=== PATIENT | female | born 1990 | race African-American/Black ===

== ENCOUNTER 2017-02-06 18:00 | Emergency (ER) | payer BC ==
[~2017-02-06] VITALS: Ht 152.4 cm; Wt 92.5 kg
[2017-02-06 18:10] VITALS: BP 124/73
[2017-02-06] MEDS ORDERED: ACYC400T PO (18:27)
[2017-02-06] MEDS ORDERED: AMOX1TAB61 PO (18:27)
--- NOTE | 2017-02-06 18:27 | PHYS DOC ---
Past Medical History Past Medical History: No Pertinent History Past Surgical History: No Surgical History Alcohol Use: Occasionally Drug Use: None Adult General Chief Complaint Chief Complaint: COUGH HPI HPI Patient is a 26 year old female presents to the emergency department stating that she has having nasal congestion with maxillary sinus tenderness. She states that she has had fevers on and off with sweats and chills. Patient also states that she has cold sores underneath her nose bilaterally. She denies any drainage or discharge coming from the sites. Patient states she's been taken NyQuil [id number]. Parent has provided her with some type of cream to place on her cold sores. Patient states she just needs to get better and she wants the cold sores gone. Review of Systems Review of Systems Constitutional: Denies fever or chills [] Eyes: Denies change in visual acuity, redness, or eye pain [] HENT: nasal congestion and sore throat [] Respiratory: Denies cough or shortness of breath [] Cardiovascular: No additional information not addressed in HPI [] GI: Denies abdominal pain, nausea, vomiting, bloody stools or diarrhea [] : Denies dysuria or hematuria [] Musculoskeletal: Denies back pain or joint pain [] Integument: rash denies skin lesions [] Neurologic: Denies headache, focal weakness or sensory changes [] Endocrine: Denies polyuria or polydipsia [] Allergies Allergies Allergies Coded Allergies Type Severity Reaction Last Updated Verified No Known Drug Allergies 09/15/14 No Physical Exam Physical Exam Constitutional: Well developed, well nourished, no acute distress, non-toxic appearance. [] HENT: Normocephalic, atraumatic, bilateral external ears normal, oropharynx moist, no oral exudates, nose normal. Bilateral tympanic membranes appear to be normal. Throat with postnasal drip noted. No erythematous no exudate noted. No anterior cervical adenopathy noted. Eyes: PERRLA, EOMI, conjunctiva normal, no discharge. [] Neck: Normal range of motion, no tenderness, supple, no stridor. [] Cardiovascular:Heart rate regular rhythm, no murmur [] Lungs & Thorax: Bilateral breath sounds clear to auscultation [] Skin: Warm, dry, no erythema, patient with a rash noted underneath her nose that appears to be pustular type. No drainage or discharge noted from the site. Extremities: No tenderness, no cyanosis, no clubbing, ROM intact, no edema. [] Neurologic: Alert and oriented X 3, normal motor function, normal sensory function, no focal deficits noted. [] Psychologic: Affect normal, judgement normal, mood normal. [] Current Patient Data Vital Signs Vital Signs Date Time Temp Pulse Resp B/P (MAP) Pulse Ox O2 Delivery O2 Flow Rate FiO2 02/06/17 18:10 98.0 71 16 99 Room Air 98.0 EKG EKG [] Radiology/Procedures Radiology/Procedures [] Course & Med Decision Making Course & Med Decision Making Pertinent Labs and Imaging studies reviewed. (See chart for details) Patient will be discharged home with recommendations to use Sudafed over-the- counter. Also recommended Mucinex DM for the cough and congestion. Patient will also be provided with a prescription for Augmentin as the signs and symptoms of been going on since Friday. Patient was be encouraged to use Abreva over-the- counter for the rash underneath the naris. She'll also be provided with acyclovir. Patient will be discharged home in stable condition with recommendations to follow-up the primary care physician next 3-5 days. Encourage plenty of fluids. Signs and symptoms to return back to emergency parents been provided. All questions and concerns been answered patient's bedside. [] Dragon Disclaimer Dragon Disclaimer This electronic medical record was generated, in whole or in part, using a voice recognition dictation system. Departure Departure Impression: Primary Impression: Sinusitis Additional Impression: Cold sore Disposition: 01 HOME, SELF-CARE Condition: STABLE Referrals: NO PCP (PCP) Patient Instructions: Sinusitis, [id number] Additional Instructions: Activity as tolerated. Medications as prescribed. Sudafed and Mucinex DM may be taken as instructed by cold mill inspector over-the- counter. You may also use Abreva [id number] to help with the sold sores. Drink plenty of fluids. Tylenol or ibuprofen for pain and discomfort. Follow-up with the primary care physician in the next 5-7 days. Return back to emergency prior signs symptoms that become worse. Scripts Acyclovir (ACYCLOVIR) 400 Mg Tablet 400 MG PO 5XDAY for 5 Days, #25 TAB Prov: RACHELLE HANDY DEPLOYMENT TECHNICIAN 02/06/17 Amoxicillin/Potassium Clav (AUGMENTIN 875-125 TABLET) 1 Each Tablet 1 TAB PO BID, #20 TAB Prov: RACHELLE HANDY APRN 02/06/17 Problem Qualifiers Primary Impression: Sinusitis Sinusitis location: maxillary Chronicity: unspecified Qualified Codes: J32.0 - Chronic maxillary sinusitis RACHELLE HANDY APRN Feb 06, 2017 18:27
== END 2017-02-06 18:36 | disposition home or self-care (01) ==
LOC: ER 18:00
DX: J32.0 Chronic maxillary sinusitis (principal); B00.1 Herpesviral vesicular dermatitis
CPT/HCPCS: 99283

== ENCOUNTER 2017-08-11 15:24 | Emergency (ER) | payer BC | END 2017-08-11 15:54 | disposition home or self-care (01) | LOC: ER 15:24 | DX: R07.89 Other chest pain (principal); M54.6 Pain in thoracic spine | CPT/HCPCS: 99283 ==

== ENCOUNTER 2017-12-31 12:35 | Emergency (ER) | payer SELFPAY ==
[~2017-12-31] VITALS: Ht 152.4 cm; Wt 89.8 kg
[~2017-12-31 12:35] MED LIST: ACYC400T PO; AMOX1TAB61 PO; CYCL10TA2 PO; IBUP-1007 PO
[2017-12-31 12:37] VITALS: BP 125/68
--- NOTE | 2017-12-31 13:19 | PHYS DOC ---
Past Medical History Past Medical History: No Pertinent History Past Surgical History: No Surgical History Alcohol Use: Occasionally Drug Use: Marijuana Adult General Chief Complaint Chief Complaint: BACK PAIN OR INJURY HPI HPI 27 y/o female presents to ER for c/o mid low back which she has had intermittent for past 1 1/2 yrs. patient reports pain increased over the past couple of days. She reports she took a Flexeril last night and did have some relief in symptoms. Patient denies any medications today for pain. Patient denies any numbness or tingling, saddle anesthesia, incontinence of bowel or bladder, or change in bowel patterns. Patient denies fever or chills. She denies any urinary symptoms. Patient denies swelling in bilateral lower extremities. Patient denies difficulty ambulating. She denies any recent falls or injury. Patient denies any heavy lifting. LMP 2 weeks ago. Review of Systems Review of Systems Constitutional: Denies fever or chills [] Eyes: Denies change in visual acuity, redness, or eye pain [] HENT: Denies nasal congestion or sore throat [] Respiratory: Denies cough or shortness of breath [] Cardiovascular: Denies chest pain or palpitations GI: Denies abdominal pain, nausea, vomiting, bloody stools or diarrhea. Denies change in bowel pattern. : Denies dysuria or hematuria. Denies incontinence of bowel or bladder. Denies flank pain Musculoskeletal: Denies joint pain. Reports mid lower back pain-denies swelling in extremities. Denies inability to ambulate Integument: Denies rash or skin lesions [] Neurologic: Denies headache, focal weakness or sensory changes. Denies numbness or tingling in lower extremities All other systems were reviewed and found to be within normal limits, except as documented in this note. Current Medications Current Medications Current Medications Medications (Trade) Dose Ordered Sig/Lolly Start Time Stop Time Status Last Admin Dose Admin Prednisone (Prednisone) 40 mg 1X ONCE 12/31/17 13:30 12/31/17 13:31 DC Allergies Allergies Allergies Coded Allergies Type Severity Reaction Last Updated Verified No Known Drug Allergies 09/15/14 No Physical Exam Physical Exam Constitutional: Well developed, well nourished, no acute distress, non-toxic appearance. [] HENT: Normocephalic, atraumatic,oropharynx moist, nose normal. [] Eyes: PERRLA, conjunctiva normal, no discharge. [] Neck: Normal range of motion, no tenderness, supple Cardiovascular:Heart rate regular rhythm, no murmur [] Lungs & Thorax: Bilateral breath sounds clear to auscultation. Resp. equal/ nonlabored Abdomen: soft, no tenderness Skin: Warm, dry, no erythema/swelling, no rash. [] Back: Tender to palp. mid lower back- no palp deformity/visible injury , no CVA tenderness. [] Extremities: No tenderness, no cyanosis, no clubbing, ROM intact, no edema. [] Neurologic: Alert and oriented X 3, normal motor function, normal sensory function, no focal deficits noted. [] Psychologic: Affect normal, judgement normal, mood normal. [] Current Patient Data Vital Signs Vital Signs Date Time Temp Pulse Resp B/P (MAP) Pulse Ox O2 Delivery O2 Flow Rate FiO2 12/31/17 12:37 98.1 105 12 125/68 (87) 97 Room Air 98.1 EKG EKG [] Radiology/Procedures Radiology/Procedures [] Course & Med Decision Making Course & Med Decision Making In-depth conversation had with patient regarding [id number] medication she could use for pain. Discussion had regarding chronic pain and need to establish primary care physician for further follow-up and pain management. With no recent falls or new injury no imaging done during this ER visit and patient is agreeable with this plan. Patient stated her boyfriend had been treated with steroids for musculoskeletal pain and she would like to try that treatment along with the muscle relaxer. Dose of prednisone will be provided in the ER and small quantity of Flexeril will be prescribed with discharge paperwork. We'll provide patient with clinic and physician information to assist with finding primary care physician. Patient has been in no visible distress with steady gait in the ER. Discharge instructions were discussed and education provided on signs and symptoms to return to ER for. Patient is agreeable with discharge plan as discussed. Dragon Disclaimer Dragon Disclaimer This electronic medical record was generated, in whole or in part, using a voice recognition dictation system. Departure Departure Impression: Primary Impression: Chronic lower back pain Disposition: HOME, SELF-CARE Condition: STABLE Referrals: NO PCP (PCP) Patient Instructions: Chronic Back Pain Additional Instructions: With your pain being chronic it is important to establish a primary care physician for further care and pain management. You are being provided with clinic and physician information to assist with finding a doctor for further care. You can use over the counter Ibuprofen, tylenol, sports cream, and heat/ice application for additional pain control options. Scripts Prednisone (PREDNISONE) 20 Mg Tablet 40 MG PO DAILY, #8 TAB start this medication 01/01/18 as initial dose was given while in Emergency Department Prov: MADHU MERA APRN 12/31/17 Cyclobenzaprine Hcl (CYCLOBENZAPRINE HCL) 10 Mg Tablet 10 MG PO BID, #10 TAB No drinking alcohol or driving while taking this medication Prov: MADHU MERA APRN 12/31/17 MADHU MERA APRN Dec 31, 2017 13:19
[2017-12-31] MEDS ORDERED: CYCL10TA2 PO (13:27)
[2017-12-31] MEDS ORDERED: PRED20TA PO (13:27)
[2017-12-31] MEDS ORDERED: predniSONE 20 MG TABLET PO ONE (13:30)
== END 2017-12-31 13:44 | disposition home or self-care (01) ==
LOC: ER 12:35
DX: G89.29 Other chronic pain (principal); M54.5 Low back pain; M54.6 Pain in thoracic spine
CPT/HCPCS: 99283; J7512

== ENCOUNTER 2018-03-01 23:56 | Emergency (ER) | payer SELFPAY ==
[~2018-03-01] VITALS: Ht 154.9 cm; Wt 87.5 kg
[~2018-03-01 23:56] MED LIST changes: +PRED20TA PO
[2018-03-02 00:17] VITALS: BP 133/86
[2018-03-02] MEDS ORDERED: NAPROXEN 500 MG TABLET PO ONE (00:45)
[2018-03-02] MEDS ORDERED: OFLO5DRO7 LEFT EAR (00:47)
[2018-03-02] MEDS ORDERED: AMOX875T PO (00:47)
--- NOTE | 2018-03-02 00:48 | PHYS DOC ---
Past Medical History Past Medical History: No Pertinent History Past Surgical History: No Surgical History Alcohol Use: None Drug Use: None Adult General Chief Complaint Chief Complaint: EARACHE/EAR PAIN HPI HPI Patient is a 27 year old AA female who presents to the ER with complaints of left ear pain since last night. She denies any drainage, bleeding, or injury to the ear. She denies any fever, runny nose, sore throat, or cough. States that she has not tried taking anything for relief of her pain. Currently she reports her pain as a 10 out of 10 on the pain scale. Review of Systems Review of Systems Constitutional: Denies fever or chills [] Eyes: Denies change in visual acuity, redness, or eye pain [] HENT: Denies nasal congestion or sore throat; reports left ear pain see history of present illness [] Respiratory: Denies cough or shortness of breath [] Cardiovascular: No additional information not addressed in HPI [] Integument: Denies rash or skin lesions [] Neurologic: Denies headache, focal weakness or sensory changes [] All other systems were reviewed and found to be within normal limits, except as documented in this note. Allergies Allergies Allergies Coded Allergies Type Severity Reaction Last Updated Verified No Known Drug Allergies 09/15/14 No Physical Exam Physical Exam Constitutional: Well developed, well nourished, no acute distress, non-toxic appearance. [] HENT: Normocephalic, atraumatic, bilateral external ears normal, right TM normal , difficulty visualizing left TM due to diffuse swelling and erythema of left inner ear canal consistent with otitis externa, oropharynx moist, no oral exudates, nose normal. [] Eyes: PERRLA, conjunctiva normal, no discharge. [] Neck: Normal range of motion, supple, no stridor; left posterior auricular lymph node tenderness. [] Cardiovascular:Heart rate regular rhythm, no murmur [] Lungs & Thorax: Bilateral breath sounds clear to auscultation [] Skin: Warm, dry, no erythema, no rash. [] Neurologic: Alert and oriented X 3, normal motor function, normal sensory function, no focal deficits noted. [] Psychologic: Affect normal, judgement normal, mood normal. [] Current Patient Data Vital Signs Vital Signs Date Time Temp Pulse Resp B/P (MAP) Pulse Ox O2 Delivery O2 Flow Rate FiO2 03/02/18 00:17 98.4 79 18 133/86 (102) 98 Room Air 98.4 EKG EKG [] Radiology/Procedures Radiology/Procedures [] Course & Med Decision Making Course & Med Decision Making Pertinent Labs and Imaging studies reviewed. (See chart for details) dx: Left otitis externa, left otitis media Patient was given a naproxen in the emergency department. Prescription written for ofloxacin eardrops, and amoxicillin. Advised patient she may take Tylenol or ibuprofen as needed for pain. Follow-up with her primary care doctor in 2-3 days if symptoms persist. Return to the ER symptoms worsen. Patient verbalized an understanding of home care, medications, follow-up, and return to ED instructions and was in agreement with the plan of care. [] Dragon Disclaimer Dragon Disclaimer This electronic medical record was generated, in whole or in part, using a voice recognition dictation system. Departure Departure Impression: Primary Impression: Diffuse otitis externa, left ear Additional Impression: Left acute otitis media Disposition: HOME, SELF-CARE Condition: STABLE Referrals: NO PCP (PCP) Patient Instructions: Otitis Externa, [id number] Additional Instructions: Fill prescriptions and use them as directed. You may take Tylenol or ibuprofen as needed for pain. Follow-up with your primary care doctor in 2-3 days if symptoms persist. Return to the ER symptoms worsen. Scripts Ofloxacin (OFLOXACIN) 5 Ml Drops 5 DROP LEFT EAR BID for 5 Days, #5 ML 0 Refills Prov: JAYNE AGUILLON COMMUTATOR UNDERCUTTER 03/02/18 Amoxicillin (AMOXICILLIN) 875 Mg Tablet 1 TAB PO BID, #14 TAB Prov: JAYNE AGUILLON COMMUTATOR UNDERCUTTER 03/02/18 Problem Qualifiers Primary Impression: Diffuse otitis externa, left ear Chronicity: acute Qualified Codes: H60.312 - Diffuse otitis externa, left ear JAYNE AGUILLON COMMUTATOR UNDERCUTTER Mar 02, 2018 00:48
== END 2018-03-02 01:10 | disposition home or self-care (01) ==
LOC: ER 23:56
DX: H60.312 Diffuse otitis externa, left ear (principal); H66.92 Otitis media, unspecified, left ear
CPT/HCPCS: 99283

== ENCOUNTER 2018-07-22 17:47 | Emergency (ER) | payer SELFPAY ==
[~2018-07-22] VITALS: Ht 152.4 cm; Wt 87.1 kg
[~2018-07-22 17:47] MED LIST changes: +AMOX875T PO; +OFLO5DRO7 LEFT EAR
[2018-07-22 18:04] VITALS: BP 124/69
[2018-07-22] MEDS ORDERED: DICL50TA4 PO (18:55)
--- NOTE | 2018-07-22 18:55 | PHYS DOC ---
Past Medical History Past Medical History: No Pertinent History Past Surgical History: No Surgical History Alcohol Use: Occasionally Drug Use: None, Marijuana Adult General Chief Complaint Chief Complaint: BACK PAIN - NO INJURY HPI HPI Patient is a 28 year old female with history of chronic low back pain presenting today complaining of 8 out of 10 bilateral low back pain that began yesterday, patient states the pain radiates to the hips. Patient denies any known injury. Denies any numbness or tingling to bilateral lower extremities. Denies any loss of bowel bladder function. She states her pain is worse when she sits for too long. Patient states she has muscle relaxer at home as well as steroids which she takes occasionally for her pain. She also has a PCP she follows up with who has told her to lose some weight but she states she doesn't believe she can lose weight around her hip area. Review of Systems Review of Systems Constitutional: Denies fever or chills [] GI: Denies abdominal pain, nausea, vomiting, bloody stools or diarrhea [] : Denies dysuria or hematuria [] Musculoskeletal: Reports low back pain Integument: Denies rash or skin lesions [] Neurologic: Denies headache, focal weakness or sensory changes [] All other systems were reviewed and found to be within normal limits, except as documented in this note. Allergies Allergies Allergies Coded Allergies Type Severity Reaction Last Updated Verified No Known Drug Allergies 09/15/14 No Physical Exam Physical Exam Constitutional: Well developed, well nourished, no acute distress, non-toxic appearance. [] Abdomen: Bowel sounds normal, soft, no tenderness, no masses, no pulsatile masses. [] Skin: Warm, dry, no erythema, no rash. [] Back: overweight patient with most of the weight around the hips. Diffuse paraspinal muscle tenderness bilaterally to the lumbar no midline lumbar tenderness, no CVA tenderness. [] Extremities: No tenderness, no cyanosis, no clubbing, ROM intact, no edema. [] Neurologic: Alert and oriented X 3, normal motor function, normal sensory function, no focal deficits noted. [] Psychologic: Affect normal, judgement normal, mood normal. [] Current Patient Data Vital Signs Vital Signs Date Time Temp Pulse Resp B/P (MAP) Pulse Ox O2 Delivery O2 Flow Rate FiO2 07/22/18 18:04 98.4 76 16 124/69 (87) 99 Room Air 98.4 EKG EKG [] Radiology/Procedures Radiology/Procedures [] Course & Med Decision Making Course & Med Decision Making Pertinent Labs and Imaging studies reviewed. (See chart for details) This is a 28-year-old female patient presenting to the ED today with exacerbation of chronic low back pain. Patient was given prescription for diclofenac. She read he has a muscle relaxer as well as steroids at home which she uses occasionally. She read he has a PCP for follow-up. Encouraged to continue following up. She requested a note for work which was provided. Dragon Disclaimer Dragon Disclaimer This electronic medical record was generated, in whole or in part, using a voice recognition dictation system. Departure Departure Impression: Primary Impression: Chronic low back pain Disposition: HOME, SELF-CARE Condition: STABLE Referrals: NO PCP (PCP) follow up with your doctor next week Patient Instructions: Back Pain, Adult Additional Instructions: You were evaluated in the emergency room for low back pain, take the prescribed medications as needed for pain continue taking a muscle relaxer as well as steroids . Continue with your weight loss program. Follow-up with your doctor in 1-2 weeks. Scripts Diclofenac Sodium (DICLOFENAC SODIUM) 50 Mg Tablet.dr 1 TAB PO BID, #30 TAB 0 Refills Prov: ROBY JOY APRN 07/22/18 Problem Qualifiers Primary Impression: Chronic low back pain Back pain laterality: bilateral Sciatica presence: with sciatica Sciatica laterality: bilateral sciatica Qualified Codes: M54.42 - Lumbago with sciatica, left side; M54.41 - Lumbago with sciatica, right side; G89.29 - Other chronic pain ROBY JOY APRN Jul 22, 2018 18:55
== END 2018-07-22 19:11 | disposition home or self-care (01) ==
LOC: ER 17:47
DX: G89.29 Other chronic pain (principal); M54.42 Lumbago with sciatica, left side; M54.41 Lumbago with sciatica, right side
CPT/HCPCS: 99282; 99283

== ENCOUNTER 2019-03-11 15:05 | Emergency (ER) | payer SELFPAY ==
[~2019-03-11] VITALS: Ht 152.4 cm; Wt 87.1 kg
[~2019-03-11 15:05] MED LIST changes: +DICL50TA4 PO
[2019-03-11 15:12] VITALS: BP 136/84
--- NOTE | 2019-03-11 15:35 | PHYS DOC ---
Past Medical History Past Medical History: No Pertinent History Additional Past Medical Histor: CHRONIC BACK PAIN Past Surgical History: No Surgical History Alcohol Use: Occasionally Drug Use: None, Marijuana Adult General Chief Complaint Chief Complaint: LOWER BACK PAIN OR INJURY HPI HPI Patient is a 28 year old [female] who presents with [mid back pain. States she has a history of lower back pain, chronic, has seen PCP for this in the past. States over the past couple days she states her pain has gone up her back a little and continues to be a little sore. States she has had no change in her urination, no change in activity, states she had tried a muscle relaxer last night and it did seem to help, but seemed to help later than usual last night. States she has used biofreeze in the past and had great success with that but did not know where to get it. States she has taken medications in the past and usually has improvement but today she continues to feel a little uncomfortable. Denies change in lifting, change in activity, change in bowel or bladder, loss of bowel or bladder. States only was concerned because her pain seemed a little higher today] Review of Systems Review of Systems Constitutional: Denies fever or chills [] HENT: Denies nasal congestion or sore throat [] Respiratory: Denies cough or shortness of breath [] GI: Denies abdominal pain, nausea, vomiting, bloody stools or diarrhea [] : Denies dysuria or hematuria [] Musculoskeletal: Reports chronic back pain, denies joint pain [] Integument: Denies rash or skin lesions [] Neurologic: Denies headache, focal weakness or sensory changes [] All other systems were reviewed and found to be within normal limits, except as documented in this note. Allergies Allergies Allergies Coded Allergies Type Severity Reaction Last Updated Verified No Known Drug Allergies 09/15/14 No Physical Exam Physical Exam Constitutional: Well developed, well nourished, no acute distress, non-toxic appearance. Conversational, smiling, laughing, in no apparent distress or discomfort [] Neck: Normal range of motion, no tenderness, supple, no stridor. [] Cardiovascular:Heart rate regular rhythm, no murmur [] Abdomen: Bowel sounds normal, soft, no tenderness, no masses, no pulsatile masses. [] Skin: Warm, dry, no erythema, no rash. [] Back: No tenderness, no CVA tenderness. Tenderness over muscles in lower back, bilaterally, on gentle or deep palpation. no deformity, no tension noted. [] Extremities: No tenderness, no cyanosis, no clubbing, ROM intact, no edema. [] Neurologic: Alert and oriented X 3, normal motor function, normal sensory function, no focal deficits noted. [] Psychologic: Affect normal, judgement normal, mood normal. [] Current Patient Data Vital Signs Vital Signs Date Time Temp Pulse Resp B/P (MAP) Pulse Ox O2 Delivery O2 Flow Rate FiO2 03/11/19 15:12 98.3 77 16 136/84 (101) 97 Room Air 98.3 EKG EKG [] Radiology/Procedures Radiology/Procedures [] Course & Med Decision Making Course & Med Decision Making Pertinent Labs and Imaging studies reviewed. (See chart for details) [discussed no acute findings on physical exam, with tenderness over muscles noted. No loss of sensation. Patient reports she just wanted a note to go back to work and make sure she was ok. Discussed use of biofreeze, OTC medications, stretching, back exercises. Patient in agreement with plan Dragon Disclaimer Dragon Disclaimer This electronic medical record was generated, in whole or in part, using a voice recognition dictation system. Departure Departure Impression: Primary Impression: Chronic low back pain Disposition: 01 HOME, SELF-CARE Referrals: NO PCP (PCP) Patient Instructions: Back Exercises, [id number], Back Pain, Adult Additional Instructions: As we discussed, you can buy Biofreeze at [facility]. If this works, you can use it as directed on the bottle. Continue to take the medications you have at home for discomfort. Continue to try new stretching and back exercise activities. Follow up with your primary care provider as needed. Problem Qualifiers Primary Impression: Chronic low back pain Back pain laterality: bilateral Sciatica presence: without sciatica Qualified Codes: M54.5 - Low back pain; G89.29 - Other chronic pain CHRISTINE BHAGAT RIBBON WINDER Mar 11, 2019 15:35
== END 2019-03-11 16:03 | disposition home or self-care (01) ==
LOC: ER 15:05
DX: G89.29 Other chronic pain (principal); M54.5 Low back pain; M54.6 Pain in thoracic spine
CPT/HCPCS: 99281